=== PATIENT | female | born 1990 | race African-American/Black ===

== ENCOUNTER 2022-05-31 21:55 | Emergency (ER) | payer SELFPAY ==
[~2022-05-31] VITALS: Ht 172.7 cm; Wt 100.0 kg
[2022-05-31 22:43] VITALS: BP 107/74
[2022-05-31] MEDS ORDERED: LEVETIRACETAM 1000MG PREMIX 100 ML IV ONE (23:15)
[2022-05-31] MEDS ORDERED: SODIUM CHLORIDE 0.9% 1,000 ML IV ONE (23:15)
[2022-05-31 23:41] LABS: BASOPHILS % 0.2 % (0.0-2.0); EOSINOPHILS % 0.4 % (0.0-5.0); HEMATOCRIT. 40.3 % (36.0-48.0); HEMOGLOBIN. 13.6 g/dL (12.0-16.0); LYMPHOCYTES % 30.4 % (20.0-50.0); MEAN CORPUSCULAR HEMOGLOBIN 31.1 pg (28.0-32.0); MEAN CORPUSCULAR VOLUME 91.9 fL (81.0-99.0); MEAN PLATELET VOLUME 8.8 fl (7.4-10.4); MONOCYTES % 5.7 % (2.0-8.0); NEUTROPHILS % 63.3 % (40.0-76.0); PLATELET 283 x1000/uL (130-400); RED BLOOD CELL COUNT 4.39 mill/uL (4.2-5.4); RED CELL DISTRIBUTION WIDTH 12.8 % (11.6-14.6)
[2022-05-31 23:57] LABS: HCG SCREEN NEGATIVE
[2022-06-01 00:16] LABS: CHLORIDE 109 mEq/L (98-107)
== END 2022-06-01 00:10 | disposition left against medical advice (07) ==
LOC: EDBD 21:55 → ER 21:55
DX: R56.9 Unspecified convulsions (principal); F17.200 Nicotine dependence, unspecified, uncomplicated; F12.10 Cannabis abuse, uncomplicated; Z88.2 Allergy status to sulfonamides
CPT/HCPCS: 36415; 80053; 84703; 85025; 93005; 96365; 99284; J1953; J7030